=== PATIENT | female | born 1975 | race Caucasian/White ===

== ENCOUNTER 2020-05-09 09:35 | Emergency (ER) | payer BC, OTHER | END 2020-05-09 11:47 | disposition home or self-care (01) | LOC: JVIRT 09:35 | DX: Z03.818 Encounter for observation for suspected exposure to other biological agents ruled out (principal) | CPT/HCPCS: C9803; G2012-GT; U0003 ==

== ENCOUNTER 2023-02-05 16:01 | Emergency (ER) | payer BC ==
[2023-02-05 16:06] VITALS: BP 127/67; PULSE 79; RESP 18; TEMP 98.1; BMI 25.0
== END 2023-02-05 17:16 | disposition home or self-care (01) ==
LOC: JERFT 16:01
DX: Z48.02 Encounter for removal of sutures (principal)
CPT/HCPCS: 99282-25